=== PATIENT | female | born 1985 | race Two or more races ===

== ENCOUNTER 2024-11-06 17:12 | Emergency (ER) | payer MEDICAID, SELFPAY ==
[2024-11-06 17:29] VITALS: BP 126/85; PULSE 110; RESP 18; TEMP 38.6; O2SAT 97
--- NOTE | 2024-11-06 17:37 | PD.EDRME ---
Rapid Medical Screening Exam RME Arrival date/time: 11/06/24 17:12 39-year-old female with no known medical history presents to the emergency room with a chief complaint of coughing, congestion, fevers x 3 days I have greeted and performed a focused initial assessment of this patient. A comprehensive ED assessment and evaluation of the patient, analysis of all test results, and completion of the medical decision making process will be conducted by additional ED providers. Chief Complaint: Fever Vital signs: Vital Signs Temperature 101.5 F H 11/06/24 17:29 Pulse Rate 110 H 11/06/24 17:29 Respiratory Rate 18 11/06/24 17:29 Blood Pressure 126/85 H 11/06/24 17:29 Pulse Oximetry (%) 97 11/06/24 17:29 Oxygen Delivery Method Room Air 11/06/24 17:29 Vital signs reviewed by provider: Yes
[2024-11-06] MEDS: ONDANSETRON ODT 4 MG TABRAP PO (18:20)
[2024-11-06 18:21] VITALS: TEMP 38.6
[2024-11-06] MEDS: ACETAMINOPHEN 500 MG TABLET 1000 MG PO (18:21)
[2024-11-06 19:38] VITALS: BP 118/81; PULSE 97; RESP 20; TEMP 37.3; O2SAT 97
--- NOTE | 2024-11-06 19:40 | XR_ITS ---
Examination: PA chest single view TECHNIQUE: Upright PA chest single view Date and time: November 06, 20241951 hours INDICATIONS: Covid positive patient today with chest pain fever FINDINGS: Normal heart size. No lobar pneumonia. The osseous structures are intact IMPRESSION: No lobar pneumonia
--- NOTE | 2024-11-06 21:00 | EDNOTE_ITS ---
ED Fever RME/HPI General Chief Complaint: Fever Stated Complaint: FEVER, HEADACHE, SOB X 2 DAYS Time Seen by Provider: 11/06/24 18:18 Arrival date/time: 11/06/24 17:12 This is a case of 39-year-old female with history of diabetes on medication controlled came in in the emergency room due to fever on and off for 3 days associated with cough nasal congestion persistence of the symptoms now with frontal headache nausea vomiting and weakness thus patient decided to sought consult here in the emergency room RME / HPI RME / HPI Narrative: 11/06/24 17:12 39-year-old female with no known medical history presents to the emergency room with a chief complaint of coughing, congestion, fevers x 3 days I have greeted and performed a focused initial assessment of this patient. A comprehensive ED assessment and evaluation of the patient, analysis of all test results, and completion of the medical decision making process will be conducted by additional ED providers. Related Data Previous Rx's ?Medication ?Instructions ?Recorded ondansetron HCl 4 mg tablet 4 mg PO Q8H PRN nausea and 09/08/20 (Zofran) vomiting #10 tabs Allergies Allergy/AdvReac Type Severity Reaction Status Date / Time Penicillins Allergy Intermediate Hives Verified 11/06/24 17:17 Course Orders Category Date Time Status Bedside COVID-19 Antigen Test NOW Care 11/06/24 17:36 Active Bedside Influenza A&B Antigen Test NOW Care 11/06/24 17:36 Completed Glucose [Bedside Blood Glucose] NOW Care 11/06/24 21:00 Active XR chest 1V portable Stat Exams 11/06/24 19:40 Taken Acetaminophen Tab [Tylenol ES Tab] Med 11/06/24 17:36 Discontinued 1,000 mg PO X1 ONE Ibuprofen Tab [Motrin Tab] Med 11/06/24 21:00 Once 800 mg PO X1 ONE Ondansetron Inj [Zofran Inj] Med 11/06/24 21:00 Once 4 mg IVP X1 ONE Ondansetron Odt [Zofran Odt] Med 11/06/24 17:36 Discontinued 4 mg PO X1 ONE Sodium Chloride 0.9% 1000 ml [Ns] 1,000 ml Med 11/06/24 21:00 Ordered IV 999 mls/hr Vital Signs Vital signs: Vital Signs Temperature 101.5 F H 11/06/24 17:29 Pulse Rate 110 H 11/06/24 17:29 Respiratory Rate 18 11/06/24 17:29 Blood Pressure 126/85 H 11/06/24 17:29 Pulse Oximetry (%) 97 11/06/24 17:29 Oxygen Delivery Method Room Air 11/06/24 17:29 Fever Medications / Prescriptions Medication administrations:: Medication Administration History Sodium Chloride (Ns) 1,000 mls @ 999 mls/hr IV .Q1H1M ONE Stop: 11/06/24 22:00 Ibuprofen (Ibuprofen Tab 400 Mg Tablet) 800 mg PO X1 ONE Stop: 11/06/24 21:01 Ondansetron HCl (Ondansetron Inj 2 Mg/Ml Inj 2 Ml) 4 mg IVP X1 ONE; Protocol Stop: 11/06/24 21:01 Discontinued Medications Acetaminophen (Acetaminophen 500 Mg Tablet) 1,000 mg PO X1 ONE Stop: 11/06/24 17:37 Last Admin: 11/06/24 18:21 Dose: 1,000 mg Documented By: Ondansetron HCl (Ondansetron Odt 4 Mg Tabrap) 4 mg PO X1 ONE; Protocol Stop: 11/06/24 17:37 Last Admin: 11/06/24 18:20 Dose: 4 mg Documented By: Discharge Plan Prescriptions/Referrals Prescriptions/Med Rec: No Action ondansetron HCl [Zofran] 4 mg tablet 4 mg PO Q8H PRN (Reason: nausea and vomiting) Qty: 10 0RF Referrals: Cosme Sabillon MD [Primary Care Provider] - In 1 week Patient/Caregiver Discharge Instructions Print Language: Korean
[2024-11-06] MEDS: ALBUTEROL/IPRATROPIUM (Duoneb) RT SOL 3 ML NEBU INH (21:20)
[2024-11-06 21:22] VITALS: PULSE 96; RESP 17; O2SAT 99
[2024-11-06] MEDS: ONDANSETRON INJ 2 MG/ML INJ 2 ML 4 MG IVP (22:07)
[2024-11-06] MEDS: SODIUM CHLORIDE 0.9% 1000 ML 1,000 ML 999 ML IV (22:07)
[2024-11-06] MEDS: IBUPROFEN TAB 400 MG TABLET 800 MG PO (22:07)
[2024-11-06 22:10] VITALS: BP 123/79; PULSE 85; RESP 16; TEMP 36.8; O2SAT 99
== END 2024-11-06 23:18 | disposition home or self-care (01) ==
PROVIDERS: Emergency Provider Emergency Medicine; PCP Family Medicine
DX: R05.9 Cough, unspecified (principal); E11.9 Type 2 diabetes mellitus without complications; R06.02 Shortness of breath; R09.81 Nasal congestion; R11.2 Nausea with vomiting, unspecified; R50.9 Fever, unspecified; R51.9 Headache, unspecified; R53.1 Weakness
CPT/HCPCS: 71045; 87400; 87811; 94640; 96361; 96374; 99283; A9270; J2405; J7030; Q0162